=== PATIENT | male | born 1935 | race Caucasian/White ===

== ENCOUNTER 2021-09-03 21:05 | Emergency (ER) | payer OTHER ==
[2021-09-03 21:39] LABS: ALBUMIN 3.5 g/dL (3.4-5.0); ALKALINE PHOSHATASE 98 U/L (46-116); ALT 20 U/L (16-63); AST 21 U/L (15-37); BILIRUBIN - TOTAL 0.4 mg/dL (0.2-1.0); BUN 13 mg/dL (7-18); BUN/CREAT RATIO (CALC) 17.3 RATIO; CHLORIDE 101 mmol/L (98-107); CO2 (BICARBONATE) 28 mmol/L (21-32); CREATININE 0.75 mg/dL (0.67-1.17); GLOBULIN (CALCULATION) 3.4 g/dL; GLUCOSE 138 mg/dL (74-106); POTASSIUM 3.8 mmol/L (3.5-5.1); TOTAL PROTEIN 6.9 g/dL (6.4-8.2)
[2021-09-03 21:50] LABS: BASOPHIL 0.4 % (0-2); EOSINOPHIL 0.3 % (0-7); HGB 15.5 g/dl (13.2-18.0); LYMPHOCYTE 11.9 % (15-48); MCH 28.8 pg (25.0-31.0); MCHC 32.3 g/dL (32.0-36.0); MCV 89.2 fL (78.0-100.0); MPV 11.5 fL (6.0-9.5); NEUTROPHIL 80.9 % (41-80); NRBC 0; PLT 205 K/uL (150-400); RBC 5.38 M/uL (4.70-6.00); WBC 17.7 K/uL (4.0-10.5)
[2021-09-03 23:16] LABS: CORONAVIRUS 2019 SARS-COV-2 NEGATIVE (NEGATIVE); INFLUENZA A NAA NEGATIVE (NEGATIVE)
[2021-09-03] MEDS ORDERED: AUGMENTIN 875-1 EACH PO (23:59)
[2021-09-03] MEDS ORDERED: AZITHROMYCIN250 MG PO (23:59)
== END 2021-09-04 00:30 | disposition home or self-care (01) ==
LOC: FER 21:05
PROVIDERS: Internal Medicine
DX: J18.9 Pneumonia, unspecified organism (principal); F03.90 Unspecified dementia, unspecified severity, without behavioral disturbance, psychotic disturbance, mood disturbance, and anxiety; Z20.822 Contact with and (suspected) exposure to COVID-19
CPT/HCPCS: 36415; 71045; 80053; 84484; 85025; 93005; G0480; J0696; U0002